=== PATIENT | female | born 1990 ===

== ENCOUNTER 2024-10-16 07:00 | Day surgery (SDC) | payer OTHER ==
[2024-10-07 11:44] VITALS: BP 115/79
[~2024-10-16] VITALS: Ht 160 cm; Wt 71.2 kg
[~2024-10-16 07:00] MED LIST: SPRINTEC 28 DA1 EACH PO; ZYRTEC10 M3
[2024-10-16] MEDS ORDERED: POVIDONE-IODINE 118 ML BOTT TOP ONE (11:56)
[2024-10-16] MEDS ORDERED: CEFOXITIN SODIUM 2,000 MG VIAL IV ONE (11:56)
[2024-10-16] MEDS ORDERED: NAPR500T14 PO (12:38)
[2024-10-16] MEDS ORDERED: MONODOX100 MG PO (12:38)
[2024-10-16] MEDS ORDERED: PROMETHAZINE HCL 50 MG/ML AMPUL IM ONE (12:45)
[2024-10-16] MEDS ORDERED: MORPHINE SULFATE 4 MG/ML VIAL IV PRN (12:45)
== END 2024-10-16 16:25 | disposition home or self-care (01) ==
LOC: CIR.AMB 07:00
PROVIDERS: ATTEND Obstetrics & Gynecology
DX: D25.0 Submucous leiomyoma of uterus (principal); N84.0 Polyp of corpus uteri; N92.5 Other specified irregular menstruation; J45.909 Unspecified asthma, uncomplicated; J32.9 Chronic sinusitis, unspecified